=== PATIENT | female | born 1970 | race Caucasian/White ===

== ENCOUNTER → 2023-03-04 | Outpatient (CLI) | payer BC ==
--- NOTE | 2023-03-04 16:19 | CT ---
EXAMINATION TYPE: CT facial bones wo con DATE OF EXAM: 03/04/2023 COMPARISON: NONE HISTORY: Sinus pressure, left eye redness x [address] DLP: 873.0 mGycm. Automated Exposure Control for Dose Reduction was Utilized. TECHNIQUE: CT scan of the sinuses is performed without contrast, axial images are obtained, coronal r eformatted images are also reviewed. FINDINGS: Minimal mucosal thickening inferior left maxillary sinus. Mild mucosal thickening involving ethmoid sinuses bilaterally. No suspicious opacification or air-fluid levels bilaterally. The ostiom eatal complex is patent bilaterally on the coronal images. Visualized portion of mastoid air cells show no abnormal opacification. The globes are intact bilate rally. Cyil-av-gbxofyar spurring and disc space narrowing at C5-C6 level is incidentally noted. IMPRESSION: Mild chronic paranasal sinus disease. No acute sinusitis.
== END | disposition home or self-care (01) ==
LOC: RADCTMAIN 15:33
PROVIDERS: ATTEND Family Medicine
DX: J34.89 Other specified disorders of nose and nasal sinuses (principal); J32.9 Chronic sinusitis, unspecified
CPT/HCPCS: 70486

== ENCOUNTER → 2023-04-22 | Outpatient (CLI) | payer BC ==
--- NOTE | 2023-04-23 14:08 | CA ---
Transthoracic Echo Report Name: Alicja Maldonado Age: 52 Gender: F : 1970 Exam Date: 04/22/2023 14:54 Exam Location: [facility] Ht (in): 70 Wt (lb): 160 Ordering Physician: Tre Bedoya MD Attending/Referring Phys: Sarai Ling NPC [employer] Dariela Verduzco RDCS Procedure CPT: Indications: R00.2 palpitations Cardiac Hx: Technical Quality: Fair Contrast 1: Total Dose (mL): Contrast 2: Total Dose (mL): MEASUREMENTS (Male / Female) Normal Values 2D ECHO LV Diastolic Diameter PLAX 4.3 cm 4.2 - 5.9 / 3.9 - 5.3 cm LV Systolic Diameter PLAX 2.4 cm IVS Diastolic Thickness 1.0 cm 0.6 - 1.0 / 0.6 - 0.9 cm LVPW Diastolic Thickness 1.0 cm 0.6 - 1.0 / 0.6 - 0.9 cm LV Relative Wall Thickness 0.5 RV Internal Dim ED PLAX 2.7 cm LV Diastolic Volume MOD BP 95.2 cm??? 67 - 155 / 56 - 104 cm??? LV Systolic Volume MOD BP 40.3 cm??? 22 - 58 / 19 - 49 cm??? LV Ejection Fraction MOD BP 57.7 % >= 55 % LV Cardiac Index MOD BP 2288.4 cm???/min???m??? LV Diastolic Volume MOD 4C 82.6 cm??? LV Systolic Volume MOD 4C 46.0 cm??? LV Ejection Fraction MOD 4C 44.4 % LV Cardiac Index MOD 4C 1527.8 cm???/min???m??? LV Diastolic Length 4C 7.2 cm LV Systolic Length 4C 6.1 cm LV Diastolic Volume MOD 2C 106.5 cm??? LV Systolic Volume MOD 2C 35.2 cm??? LV Ejection Fraction MOD 2C 66.9 % LV Cardiac Index MOD 2C 2972.8 cm???/min???m??? LV Diastolic Length 2C 7.5 cm LV Systolic Length 2C 6.1 cm LA Volume 35.9 cm??? 18 - 58 / 22 - 52 cm??? LA Volume Index 19.0 cm???/m??? 16 - 28 cm???/m??? M-MODE Aortic Root Diameter MM 2.7 cm LA Systolic Diameter MM 3.7 cm LA Ao Ratio MM 1.4 DOPPLER AV Peak Velocity 111.7 cm/s AV Peak Gradient 5.0 mmHg AV Mean Velocity 76.4 cm/s AV Mean Gradient 2.7 mmHg AV Velocity Time Integral 20.9 cm LVOT Peak Velocity 117.7 cm/s LVOT Peak Gradient 5.5 mmHg LVOT Velocity Time Integral 24.7 cm MV Area PHT 4.6 cm??? Mitral E Point Velocity 74.9 cm/s Mitral A Point Velocity 83.9 cm/s Mitral E to A Ratio 0.9 MV Deceleration Time 165.1 ms MV E' Velocity 8.9 cm/s Mitral E to MV E' Ratio 8.4 FINDINGS Left Ventricle Normal Left ventricular size, wall thickness, systolic function with no obvious regional wall motion abnormalities. Normal Left ventricular diastolic filling pattern. Left ventricular ejection fraction is estimated at 55-60 %. Right Ventricle Normal right ventricular size and function. Right ventricular systolic pressure within normal limits. Right Atrium Normal right atrial size. Left Atrium Normal left atrial size. Mitral Valve Structurally normal mitral valve. Mild mitral annular calcification. Trace mitral regurgitation. Aortic Valve Trileaflet aortic valve. No aortic valve stenosis or regurgitation. Tricuspid Valve Structurally normal tricuspid valve. Mild tricuspid regurgitation. Pulmonic Valve Structurally normal pulmonic valve. Pericardium No pericardial effusion. Aorta Normal size aortic root and proximal ascending aorta. CONCLUSIONS Normal LV size and systolic function Previewed by: Dr. Mert Payton MD (Electronically Signed) Final Date: 23 April 2023 14:07
== END | disposition home or self-care (01) ==
LOC: RADECHMAIN 14:45
PROVIDERS: ATTEND Family Medicine
DX: R00.2 Palpitations (principal)
CPT/HCPCS: 93306

== ENCOUNTER → 2023-04-30 | Outpatient (CLI) | payer BC ==
--- NOTE | 2023-04-30 07:52 | CTL ---
EXAMINATION TYPE: CT Low Dose Lung DATE OF EXAM ORDERED: 04/30/2023 HISTORY: Long-term tobacco use. Lung cancer screening CT DLP: 99.[address] CTDI: 2.5 mGy Automated exposure control for dose reduction was used. SCREENING VISIT: Baseline COMPARISON: None TECHNIQUE: Low dose computed tomography scan was performed through the chest at 1 mm thick sections a nd reconstructed images in multiple planes at 1 mm and [address] DIAGNOSTIC QUALITY: Satisfactory FINDINGS: LUNG NODULES: None. LUNGS: COPD: Severity: None Fibrosis: Severity: None Lymph nodes: None Other findings: Pectus excavatum deformity. Local mass effect. RIGHT PLEURAL SPACE: Effusion: None Calcification: None Thickening: None Pneumothorax: None LEFT PLEURAL SPACE: Effusion: None Calcification: None Thickening: None Pneumothorax: None HEART: Heart Size: Normal Coronary Calcification: None Pericardial Effusion: Tiny anterior-inferior pericardial effusion axial image 52 OTHER FINDINGS: Upper abdomen: None Bony thorax: Pectus excavatum deformity. Slight scoliotic curvature to the upper thoracic spine. Supraclavicular region: None Other: None IMPRESSION: No suspicious pulmonary nodules. CT LUNG RAD AND CT CHEST RECOMMENDATION: Lung-Rad 1 Negative: Continue annual screening with LDCT in 12 months. S Modifier (other clinically significant findings): None
== END | disposition home or self-care (01) ==
LOC: RADCTMAIN 07:02
PROVIDERS: ATTEND Family Medicine
DX: Z12.2 Encounter for screening for malignant neoplasm of respiratory organs (principal); F17.210 Nicotine dependence, cigarettes, uncomplicated
CPT/HCPCS: 71271